=== PATIENT | female | born 1980 | race Caucasian/White ===

== ENCOUNTER 2017-10-12 11:03 | Emergency (ER) | payer SELFPAY ==
[~2017-10-12] VITALS: Ht 175.3 cm; Wt 97.3 kg
[~2017-10-12 11:03] MED LIST: CYCL-1 PO
[2017-10-12] MEDS ORDERED: ONDA4TAB9 PO ×2 (13:20→14:44)
[2017-10-12] MEDS ORDERED: HYDR-3965 PO (13:20)
[2017-10-12] MEDS ORDERED: normal saline 1000ML IV soln IVB ONE (13:25)
[2017-10-12] MEDS ORDERED: HYDROcodone/acetaminophen 5mg/325mg tablet PO ONE (13:35)
[2017-10-12] MEDS ORDERED: ondansetron 4mg rapidly disintigrating tab PO ONE (13:35)
[2017-10-12] MEDS ORDERED: ACET1TAB12 PO (14:45)
[2017-10-12 14:53] VITALS: BP 132/74
== END 2017-10-12 14:55 | disposition home or self-care (01) ==
LOC: ER 11:04
DX: S92.355A Nondisplaced fracture of fifth metatarsal bone, left foot, initial encounter for closed fracture (principal); R55 Syncope and collapse; G43.909 Migraine, unspecified, not intractable, without status migrainosus; Z90.89 Acquired absence of other organs; Z88.0 Allergy status to penicillin; Z88.1 Allergy status to other antibiotic agents; Z79.899 Other long term (current) drug therapy; W10.9XXA Fall (on) (from) unspecified stairs and steps, initial encounter; Y93.01 Activity, walking, marching and hiking; Y92.89 Other specified places as the place of occurrence of the external cause; Y99.8 Other external cause status
CPT/HCPCS: 73610; 73630; 82948; 93005; 96360; 99285; J7030